=== PATIENT | male | born 1960 | race Caucasian/White ===

== ENCOUNTER 2016-10-28 07:52 | Day surgery (SDC) | payer MEDICARE, MEDICAID ==
[~2016-10-28 07:52] MED LIST: 1-ME1LIQ PO; ATEN-100 PO; ATOR80TA41 PO; CALC0.25 PO; HYDR-3534 PO; LEVEMIR SC; POLY1.4%O LEFT EYE; REST30CA PO
[2016-10-28 08:18] VITALS: BP 143/91; PULSE 68; RESP 20; TEMP 97.6; O2SAT 96
[2016-10-28] MEDS ORDERED: SODIUM CHLOR 0.9% 1000 ML INJ 1,000 ML IV SCH (09:30)
[2016-10-28] MEDS ORDERED: GADOBENATE DIM PF 529 MG/ML 20ML VIAL (for RAD MRI) IV ONE (12:51)
[2016-10-28 13:00] VITALS: BP 140/83; PULSE 67; RESP 18; TEMP 97.5; O2SAT 97
[2016-10-28] MEDS ORDERED: ATEN25TA PO (13:04)
[2016-10-28] MEDS ORDERED: CALC0.25 PO (13:04)
--- NOTE | 2016-10-28 15:21 | RADRPT ---
EXAM DATE/TIME: 10/28/2016 12:23 [facility] COMPARISON: MRI ABDOMEN W & W/O CONTRAST, April 02, 2016, 12:46. INDICATIONS : History of renal cell carcinoma. CONTRAST: 20 cc Multihance (gadobenate) IV MEDICAL HISTORY : Renal cell carcinoma. Diabetes mellitus type 2. Hypertension. SURGICAL HISTORY : Nephrectomy, right. Partial nephrectomy, left ENCOUNTER: [facility] ACUITY: > 1 year PAIN SCORE: 0/10 LOCATION: abdomen. TECHNIQUE: Multiplanar, multisequence magnetic resonance imaging of the abdomen was performed without and with i ntravenous contrast. FINDINGS: LIVER: Normal size with normal signal intensity. No lesion is identified. Portal vein is within normal limi ts. BILIARY: There is no intra- or extra-hepatic biliary ductal dilatation. Gallbladder contains no stones. SPLEEN: Within normal limits. PANCREAS: Within normal limits. ADRENALS: The left adrenal gland is within normal limits. Right adrenal gland is not clearly seen. KIDNEYS: The right kidney is surgically absent. Left kidney is undergone prior partial nephrectomy. There is s light lateral displacement of the kidney. There is chronic scar at the upper pole. The kidney is norm al in size and signal intensity. No abnormal enhancing lesion is identified. There is no hydronephros is. OTHER: There is moderate atherosclerotic disease of aorta. It is ectatic. There is no lymphadenopathy. There is a stable hemangioma within the T12 vertebral body. CONCLUSION: Stable examination with changes in the right kidney characteristic of prior partial nephrectomy with scar at the upper pole. No new or recurrent enhancing lesion is identified in the left kidney. Right kidney is absent. Lei Maria MD on October 28, 2016 at 15:10 Board Certified Radiologist. This report was verified electronically.
[2016-11-02] MEDS ORDERED: FOLI1CAP7 PO (10:56)
[2016-11-02] MEDS ORDERED: ASCO500C PO (10:56)
[2016-11-02] MEDS ORDERED: CO Q50CA PO (10:56)
[2016-11-02] MEDS ORDERED: PIOG15TA5 PO (10:56)
[2016-11-02] MEDS ORDERED: FISH1000 PO (10:56)
[2016-11-02] MEDS ORDERED: AMLO10TA2 PO (10:56)
[2016-11-02] MEDS ORDERED: FENO48TA PO (10:56)
[2016-11-02] MEDS ORDERED: LISI10TA3 PO (10:56)
[2016-11-02] MEDS ORDERED: ASPI1TAB69 PO (10:56)
[2016-11-02] MEDS ORDERED: MULTCAP14 (10:56)
[2016-11-02] MEDS ORDERED: CYAN1TAB24 (10:56)
[2016-11-02] MEDS ORDERED: FERR325T PO (10:56)
[2016-11-02] MEDS ORDERED: DOXA1TAB35 PO (11:22)
== END 2016-10-28 13:05 | disposition home or self-care (01) ==
LOC: HRAD 07:52 → HRIP 07:53 → EDSTATUS 10:30 → HRAD 13:05
PROVIDERS: ATTEND Urology
DX: Z85.528 Personal history of other malignant neoplasm of kidney (principal); E11.29 Type 2 diabetes mellitus with other diabetic kidney complication; I10 Essential (primary) hypertension; Z90.5 Acquired absence of kidney
CPT/HCPCS: 74183; 96360; A9577; J7030

== ENCOUNTER 2017-05-06 10:04 | Day surgery (SDC) | payer MEDICARE, MEDICAID ==
[~2017-05-06 10:04] MED LIST changes: -1-ME1LIQ PO; +AMLO10TA2 PO; +ASCO500C PO; +ASPI1TAB69 PO; -ATEN-100 PO; -ATOR80TA41 PO; +CO Q50CA PO; +CYAN1TAB24; +DOXA1TAB35 PO; +FENO48TA PO; +FERR325T PO; +FISH1000 PO; +FOLI1CAP7 PO; -HYDR-3534 PO; -LEVEMIR SC; +LISI10TA3 PO; +MULTCAP14; +PIOG15TA5 PO; -POLY1.4%O LEFT EYE; -REST30CA PO
[2017-05-06 10:25] VITALS: BP 181/99; PULSE 83; RESP 20; TEMP 97.1; O2SAT 97
[2017-05-06] MEDS ORDERED: PIOG15TA5 PO (10:32)
[2017-05-06] MEDS ORDERED: OMEGCAP PO (10:32)
[2017-05-06] MEDS ORDERED: ASPI81CH CHEW (10:32)
[2017-05-06] MEDS ORDERED: FENO48TA PO (10:32)
[2017-05-06] MEDS ORDERED: CALC0.25 PO (10:32)
[2017-05-06] MEDS ORDERED: TEST1INJ3 IM (10:32)
[2017-05-06] MEDS ORDERED: NORC5TAB PO (10:32)
[2017-05-06] MEDS ORDERED: DOXA1TAB35 PO (10:32)
[2017-05-06] MEDS ORDERED: AMLO10TA2 PO (10:32)
[2017-05-06] MEDS ORDERED: LISI10TA3 PO (10:32)
[2017-05-06] MEDS ORDERED: SODIUM CHLOR 0.9% 1000 ML INJ 1,000 ML IV ONE (11:15)
[2017-05-06] MEDS ORDERED: GADOBENATE DIM PF 529 MG/ML 10ML VIAL (for RAD MRI) IV ONE (14:00)
--- NOTE | 2017-05-06 15:54 | RADRPT ---
EXAM DATE/TIME: 05/06/2017 13:39 [facility] COMPARISON: No previous studies available for comparison. INDICATIONS : Nephrectomy, renal cancer. CONTRAST: 9 cc MultiHance (gadobenate) IV MEDICAL HISTORY : Renal cell carcinoma. Diabetes mellitus type 2. Hypertension. SURGICAL HISTORY : Nephrectomy, right. Partial nephrectomy, left ENCOUNTER: Subsequent ACUITY: > 1 year PAIN SCORE: 0/10 LOCATION: Abdomen. TECHNIQUE: Multiplanar, multisequence magnetic resonance imaging of the abdomen was performed wit hout and with intravenous contrast. FINDINGS: MRI of the abdomen was performed with and without contrast. The right kidney is surgica lly absent. There is a small area of scarring in the upper lateral aspect of the left kidney which i s unchanged. No residual mass or enhancing lesion is identified within the left kidney. There is a small spleen and splenule which are unchanged. No concerning masses are identified. I do not see an y retroperitoneal adenopathy. No concerning masses are seen. Biliary tree is unremarkable. Gallbladder is unremarkable. CONCLUSION: Status post right nephrectomy and a small linear area of scarring involving the upper posterior aspect of the left kidney which is unchanged. I do not see any concerning mass or abnormal recurrence within the left surgical scar. Alberto Mireles MD on May 06, 2017 at 15:24 Board Certified Radiologist. This report was verified electronically.
[2017-05-10] MEDS ORDERED: TEST1INJ3 IM (11:14)
[2017-05-10] MEDS ORDERED: TAMS5CAP PO (12:16)
== END 2017-05-06 14:22 | disposition home or self-care (01) ==
LOC: HROP 10:04 → HRIP 10:05 → HROP 14:22
PROVIDERS: ATTEND Urology
DX: Z85.528 Personal history of other malignant neoplasm of kidney (principal); E11.9 Type 2 diabetes mellitus without complications; I10 Essential (primary) hypertension; Z90.5 Acquired absence of kidney
CPT/HCPCS: 74183; 82565; 96365; 96366; A9577; J7030

== ENCOUNTER 2017-11-15 08:55 | Day surgery (SDC) | payer MEDICARE, MEDICAID ==
[~2017-11-15 08:55] MED LIST changes: -ASCO500C PO; +ASPI-516 CHEW; -ASPI1TAB69 PO; -CO Q50CA PO; -CYAN1TAB24; -FERR325T PO; -FISH1000 PO; -FOLI1CAP7 PO; -MULTCAP14; +NORC5TAB PO; +OMEGCAP PO; +TAMS5CAP PO; +TEST1INJ3 IM
[2017-11-15 09:20] VITALS: BP 133/81; PULSE 72; RESP 20; TEMP 97.6; O2SAT 96
[2017-11-15] MEDS ORDERED: SODIUM CHLOR 0.9% 1000 ML INJ 1,000 ML IV SCH (10:00)
[2017-11-15 10:53] LABS: CREATININE 1.62 MG/DL (0.60-1.30)
[2017-11-15] MEDS ORDERED: GADOBENATE DIM PF 529 MG/ML 5 ML VIAL (for RAD MRI) IV ONE (13:24)
--- NOTE | 2017-11-15 14:15 | RADRPT ---
EXAM DATE/TIME: 11/15/2017 00:00 [facility] COMPARISON: CHEST PA & LAT, March 06, 2015, 11:01. INDICATIONS : Renal cell carcinoma MEDICAL HISTORY : Renal cell carcinoma. Diabetes mellitus type 2. Hypertension. SURGICAL HISTORY : Nephrectomy, right. Partial nephrectomy, left ENCOUNTER: Initial ACUITY: 1 day PAIN SCORE: 0/10 LOCATION: chest FINDINGS: PA and lateral views of the chest demonstrate the lungs to be symmetrically aerated without evidence of mass, infiltrate or effusion. The cardiomediastinal contours are unremarkable. Osseous structure s are intact. CONCLUSION: No acute disease. There is no evidence of metastatic disease. Jv Silva MD on November 15, 2017 at 14:12 Board Certified Radiologist. This report was verified electronically.
--- NOTE | 2017-11-15 14:34 | RADRPT ---
EXAM DATE/TIME: 11/15/2017 12:26 [facility] COMPARISON: MRI ABDOMEN W & W/O CONTRAST, May 06, 2017, 13:39. INDICATIONS : Renal carcinoma. Status post right nephrectomy.. CONTRAST: 10 cc Multihance (gadobenate) IV MEDICAL HISTORY : Hypertension. Diabetes mellitus type 2. Renal ca SURGICAL HISTORY : Nephrectomy, right. Resection left kidney. ENCOUNTER: Subsequent ACUITY: > 1 year PAIN SCORE: 0/10 LOCATION: abdomen TECHNIQUE: Multiplanar, multisequence magnetic resonance imaging of the abdomen was performed without and with i ntravenous contrast. FINDINGS: LIVER: Normal size with normal signal intensity. No lesion is identified. Portal vein is within normal limi ts. BILIARY: There is no intra- or extra-hepatic biliary ductal dilatation. Gallbladder contains no stones. SPLEEN: Within normal limits. PANCREAS: Within normal limits. ADRENALS: Within normal limits. KIDNEYS: The patient is again noted to be status post right nephrectomy. There is no recurrent tumor. The left kidney remains normal in size and shape with mild stable scarring and no evidence of hydronephrosis. There are any scattered cysts. OTHER: Aorta is nonaneurysmal. There is no lymphadenopathy. A duodenal diverticulum is noted. CONCLUSION: 1. Stable appearance status post right nephrectomy with no recurrent tumor or metastatic disease. 2. The left kidney remains intact with mild scarring and tiny cysts. Jv Silva MD on November 15, 2017 at 14:20 Board Certified Radiologist. This report was verified electronically.
== END 2017-11-15 13:15 | disposition home or self-care (01) ==
LOC: HROP 08:55 → HRIP 08:58 → EDSTATUS 10:30 → HROP 13:15
PROVIDERS: ATTEND Urology
DX: C64.9 Malignant neoplasm of unspecified kidney, except renal pelvis (principal)
CPT/HCPCS: 71046; 74183; 82565; 96360; 96367; A9577; J7030